=== PATIENT | female | born 1985 ===

== ENCOUNTER 2018-06-06 19:29 | Emergency (ER) | payer SELFPAY ==
[~2018-06-06] VITALS: Ht 152.4 cm; Wt 59.0 kg
[~2018-06-06 19:29] MED LIST: ACHD5005 PO; AMLO5TAB7 PO; DOCU100C37 PO; FERR-84 PO; IBUP-1773 PO; LEVO50TA PO; LEVOTHYROXINE; PRED20TA PO; PREN-54 PO; TRAM50TA2 PO
--- NOTE | 2018-06-06 20:00 | ED GU-Female ---
General Stated Complaint: BLOATING;CRAMPING Source: patient, family, spouse Exam Limitations: language barrier (esl language line used) History of Present Illness Date Seen by Provider: Jun 06, 2018 Time Seen by Provider: 19:45 Initial Comments The patient presents to ER by private conveyance with chief complaint the past couple months she's been having a black spot on the left breast is painful and sometimes has a small amount of discharge. She also has a irregular.. She says she's only had a period twice since she had her last child who is 2 years old by . She said the last. Has lasted 4 weeks and is just about complete. She says she also sometimes has a discharge from the vagina. She says is painful urination and she has discomfort in her suprapubic region. She said last month she went to [facility] they worked her up and told her that it was a ovarian cyst rupture. She said they did not do a vaginal exam clicks swabs and check for STD or a breast exam. She does not know the last time she had a Pap smear and has never had a mammogram. Other than denies any other abdominal surgeries. Allergies and Home Medications Allergies Coded Allergies: LUZ ELENAANo Known Allergies (Unverified Allergy, Mild, 07/04/09) Home Medications Amlodipine Besylate 5 Mg Tablet, 5 MG PO DAILY Prescribed by: PIERRE LUCIANO on 02/19/16944 Docusate Sodium 100 Mg Capsule, 100 MG PO BID Prescribed by: PIERRE LUCIANO on 02/19/16944 Ferrous Sulfate 325 Mg Tablet, 325 MG PO DAILY, (Reported) Hydrocodone Bit/Acetaminophen 1 Each Tablet, 1-2 TAB PO Q4H PRN for PAIN Prescribed by: PIERRE LUCIANO on 02/19/16 09 Ibuprofen 600 Mg Tablet, 600 MG PO Q6H Prescribed by: PIERRE LUCIANO on 02/19/1645 Levothyroxine Sodium 50 Mcg Tablet, 50 MCG PO DAILY, (Reported) Pnv No.118/Iron Fumarate/FA 1 Each Tab.chew, 1 EACH PO DAILY, (Reported) Patient Home Medication List Home Medication List Reviewed: Yes Review of Systems Review of Systems Constitutional: No chills, No fever, No malaise EENTM: No ear pain, No eye pain Respiratory: No cough, No short of breath Cardiovascular: No chest pain, No edema Gastrointestinal: No abdominal pain, No constipation, No diarrhea, No nausea, No vomiting Genitourinary: denies burning, denies dysuria Musculoskeletal: No back pain, No joint pain Past Kknelsp-Yokhpy-Ssrxpz Hx Patient Social History Alcohol Use: Denies Use Recreational Drug Use: No Smoking Status: Never a Smoker Recent Foreign Travel: No Contact w/Someone Who Travel: No Immunizations Up To Date Tetanus Booster (TDap): Unknown PED Vaccines UTD: Yes Past Medical History Reproductive Disorders: No Female Reproductive Disorders: Denies Sexually Transmitted Disease: No HIV/AIDS: No Hypothyroidsim Family Medical History Alcoholism MATERNAL GRANDFATHER Asthma G8 SISTER Diabetes mellitus 19 FATHER (NIDDM) 19 MOTHER (NIDDM) Kidney disease 19 FATHER (KIDNEY FAILURE) Diabetes Physical Exam Vital Signs Capillary Refill : Height, Weight, BMI Height: 5'0.00" Weight: 188lbs. 0.0oz. [id number]; 36.7 BMI Method:Estimated General Appearance: WD/WN, no apparent distress HEENT: PERRL/EOMI, normal ENT inspection, pharynx normal Neck: non-tender, normal inspection Cardiovascular: normal peripheral pulses, regular rate, rhythm, no edema Respiratory: lungs clear, normal breath sounds, no respiratory distress, no accessory muscle use Gastrointestinal: normal bowel sounds, non tender, soft Genital/Rectal: normal genital exam, normal vaginal exam; No tenderness; other (normal size of the ovaries and uterus on palpation. There is a thin brown secretions visualized on examination.) Pelvic: normal external exam, normal adnexa, no cerv. motion tender, no masses Neurologic/Psychiatric: alert, normal mood/affect, oriented x 3 Skin: other (there is a 1-2 mm diameter round, regular, uniform colored macula at the 9:00 position on the left breast. The breast tissue itself is unremarkable to palpation. There are no masses. The nipple does not express any discharge. No axillary lymphadenopathy palpable. No other skin changes, dimpling or deformity.) Progress/Results/Core Measures Suspected Sepsis SIRS Temperature: Pulse: Respiratory Rate: Laboratory Tests 06/06/18 19:50: White Blood Count 9.3 Blood Pressure / Mean: Laboratory Tests 06/06/18 19:50: Creatinine 0.79, Platelet Count 273, Total Bilirubin 0.3 Results/Orders Lab Results Laboratory Tests Test 06/06/18 19:50 06/06/18 19:55 06/06/18 21:35 Range/Units White Blood Count 9.3 4.3-11.0 10^3/uL Red Blood Count 4.56 4.35-5.85 10^6/uL Hemoglobin 14.7 11.5-16.0 G/DL Hematocrit 43 35-52 % Mean Corpuscular Volume 94 80-99 FL Mean Corpuscular Hemoglobin 32 25-34 PG Mean Corpuscular Hemoglobin Concent 34 32-36 G/DL Red Cell Distribution Width 12.2 10.0-14.5 % Platelet Count 273 130-400 10^3/uL Mean Platelet Volume 10.8 H 7.4-10.4 FL Neutrophils (%) (Auto) 55 42-75 % Lymphocytes (%) (Auto) 37 12-44 % Monocytes (%) (Auto) 8 0-12 % Eosinophils (%) (Auto) 1 0-10 % Basophils (%) (Auto) 0 0-10 % Neutrophils # (Auto) 5.1 1.8-7.8 X 10^3 Lymphocytes # (Auto) 3.4 1.0-4.0 X 10^3 Monocytes # (Auto) 0.7 0.0-1.0 X 10^3 Eosinophils # (Auto) 0.1 0.0-0.3 10^3/uL Basophils # (Auto) 0.0 0.0-0.1 10^3/uL Urine Color YELLOW Urine Clarity CLEAR Urine pH 8 5-9 Urine Specific [place] 1.015 L 1.016-1.022 Urine Protein 3+ H NEGATIVE Urine Glucose (UA) NEGATIVE NEGATIVE Urine Ketones NEGATIVE NEGATIVE Urine Nitrite NEGATIVE NEGATIVE Urine Bilirubin NEGATIVE NEGATIVE Urine Urobilinogen NORMAL NORMAL MG/DL Urine Leukocyte Esterase 1+ H NEGATIVE Urine RBC (Auto) 2+ H NEGATIVE Urine RBC 2-5 H /HPF Urine WBC 0-2 /HPF Urine Squamous Epithelial Cells 2-5 /HPF Urine Crystals NONE /LPF Urine Bacteria NONE /HPF Urine Casts NONE /LPF Urine Mucus NEGATIVE /LPF Urine Culture Indicated NO Sodium Level 140 135-145 MMOL/L Potassium Level 4.1 3.6-5.0 MMOL/L Chloride Level 103 98-107 MMOL/L Carbon Dioxide Level 26 21-32 MMOL/L Anion Gap 11 5-14 MMOL/L Blood Urea Nitrogen 11 7-18 MG/DL Creatinine 0.79 0.60-1.30 MG/DL Estimat Glomerular Filtration Rate > 60 BUN/Creatinine Ratio 14 Glucose Level 126 H 70-105 MG/DL Calcium Level 9.5 8.5-10.1 MG/DL Corrected Calcium 9.4 8.5-10.1 MG/DL Total Bilirubin 0.3 0.1-1.0 MG/DL Aspartate Amino Transf (AST/SGOT) 112 H 5-34 U/L Alanine Aminotransferase (ALT/SGPT) 247 H 0-55 U/L Alkaline Phosphatase 100 40-136 U/L Total Protein 7.8 6.4-8.2 GM/DL Albumin 4.1 3.2-4.5 GM/DL Thyroid Stimulating Hormone (TSH) 3.24 0.35-4.94 UIU/ML Urine Test NEGATIVE NEGATIVE My Orders Orders - AWILDA RUBIN Cbc With Automated Diff (06/06/18 19:50) Comprehensive Metabolic Panel (06/06/18 19:50) Thyroid Stimulating Hormone (06/06/18 19:50) Ua Culture If Indicated (06/06/18 19:50) Saline Lock/Iv-Start (06/06/18 19:50) Neisseria Gonorrhea Swab (06/06/18 19:50) Chlamydia Trachomatis Swab (06/06/18 19:50) Wet Prep (06/06/18 19:50) Hcg,Qualitative Urine (06/06/18 20:50) Vital Signs/I&O Capillary Refill : Progress Note #1: Time: 19:59 Progress Note We'll get the patient produce a urine specimen put an IV and get some labs and put her in a gown. Plan to do a pelvic exam as well as breast exam and obtain wet prep, GC chlamydia. After we obtain samples will probably be referring her to gynecology for follow-up. Last imaging we have for her was in 2016 images during a breech position fetus which would explain why she had the . Progress Note #2: Time: 22:02 Departure Impression Primary Impression: Abnormal uterine bleeding Additional Impressions: Breast tenderness in female Normal mole of skin Disposition: 01 HOME, SELF-CARE Condition: Stable Departure-Patient Inst. Decision time for Depature: 22:05 Referrals: JANET CANTU DO (PCP/Family) Primary Care Physician Patient Instructions: Absent or Irregular Periods Add. Discharge Instructions: Follow-up with your primary care doctor to get a referral to an DISTRIBUTION OPERATIONS MANAGER or you can follow-up with Dr. Cantu. Use Tylenol 1000 mg and/or ibuprofen 800 mg every 8 hours as needed for the discomfort. Copy Copies To 1: JANET CANTU TITUS J Jun 06, 2018 20:00
[2018-06-06 20:03] LABS: BASOPHILS % (AUTO) 0 % (0-10); EOSINOPHILS # (AUTO) 0.1 10^3/uL (0.0-0.3); EOSINOPHILS % (AUTO) 1 % (0-10); HEMATOCRIT 43 % (35-52); HEMOGLOBIN 14.7 G/DL (11.5-16.0); LYMPHOCYTES # (AUTO) 3.4 X 10^3 (1.0-4.0); LYMPHOCYTES % (AUTO) 37 % (12-44); MEAN CORPUSCULAR HEMOGLOBIN 32 PG (25-34); MEAN CORPUSCULAR HGB CONC 34 G/DL (32-36); MEAN CORPUSCULAR VOLUME 94 FL (80-99); MEAN PLATELET VOLUME 10.8 FL (7.4-10.4); MONOCYTES # (AUTO) 0.7 X 10^3 (0.0-1.0); MONOCYTES % (AUTO) 8 % (0-12); NEUTROPHILS # (AUTO) 5.1 X 10^3 (1.8-7.8); NEUTROPHILS % (AUTO) 55 % (42-75); PLATELET COUNT 273 10^3/uL (130-400); RED BLOOD COUNT 4.56 10^6/uL (4.35-5.85); RED CELL DISTRIBUTION WIDTH 12.2 % (10.0-14.5); WHITE BLOOD COUNT 9.3 10^3/uL (4.3-11.0)
[2018-06-06 20:04] LABS: BILIRUBIN,URINE NEGATIVE (NEGATIVE); CLARITY,URINE CLEAR; COLOR,URINE YELLOW; GLUCOSE, URINE (UA) NEGATIVE (NEGATIVE); KETONES,URINE NEGATIVE (NEGATIVE); LEUKOCYTE ESTERASE ,URINE 1+ (NEGATIVE); NITRITE,URINE NEGATIVE (NEGATIVE); PH,URINE 8 (5-9); PROTEIN,URINE 3+ (NEGATIVE); UROBILINOGEN,URINE NORMAL (NORMAL)
[2018-06-06 20:10] LABS: WBC,URINE 0-2 /HPF
[2018-06-06 20:20] LABS: ALANINE AMINOTRANSFERASE 247 U/L (0-55); ALBUMIN 4.1 GM/DL (3.2-4.5); ALKALINE PHOSPHATASE 100 U/L (40-136); BILIRUBIN,TOTAL 0.3 MG/DL (0.1-1.0); BUN/CREATININE RATIO 14; CALCIUM 9.5 MG/DL (8.5-10.1); CARBON DIOXIDE 26 MMOL/L (21-32); CHLORIDE 103 MMOL/L (98-107); CREATININE SERUM 0.79 MG/DL (0.60-1.30); GFR ESTIMATED > 60; GLUCOSE 126 MG/DL (70-105); POTASSIUM 4.1 MMOL/L (3.6-5.0); SODIUM 140 MMOL/L (135-145); TOTAL PROTEIN 7.8 GM/DL (6.4-8.2)
[2018-06-06 22:26] VITALS: BP 116/72
== END 2018-06-06 22:30 | disposition home or self-care (01) ==
LOC: EDUNIT# 19:29 → ER 19:31
DX: N93.9 Abnormal uterine and vaginal bleeding, unspecified (principal); N64.59 Other signs and symptoms in breast; D22.9 Melanocytic nevi, unspecified; E03.9 Hypothyroidism, unspecified; Z98.890 Other specified postprocedural states
CPT/HCPCS: 36415; 80053; 81000; 84443; 84703; 85025; 87210; 87491; 87591

== ENCOUNTER 2018-12-02 19:38 | Emergency (ER) | payer SELFPAY ==
[~2018-12-02] VITALS: Ht 154.9 cm; Wt 77.1 kg
[~2018-12-02 19:38] MED LIST changes: -AMLO5TAB7 PO; +AMLO5TAB9 PO
[2018-12-02 20:30] LABS: BILIRUBIN,URINE NEGATIVE (NEGATIVE); CLARITY,URINE VERY CLOUDY; COLOR,URINE AMBER; GLUCOSE, URINE (UA) NEGATIVE (NEGATIVE); KETONES,URINE NEGATIVE (NEGATIVE); LEUKOCYTE ESTERASE ,URINE 2+ (NEGATIVE); NITRITE,URINE NEGATIVE (NEGATIVE); PH,URINE 6 (5-9); PROTEIN,URINE 3+ (NEGATIVE); UROBILINOGEN,URINE 1 MG/DL (NORMAL)
[2018-12-02] MEDS ORDERED: CYCLOBENZAPRINE 10 MG (FLEXERIL) TAB PO ONE (20:30)
[2018-12-02] MEDS ORDERED: KETOROLAC 30 MG/ML VIAL IM ONE (20:30)
[2018-12-02 20:44] LABS: AMORPHOUS SEDIMENT,UR RARE AMOR URATES /LPF; BACTERIA,URINE FEW /HPF; RBC,URINE RARE /HPF
[2018-12-02] MEDS ORDERED: CEPHALEXIN 250 MG (KEFLEX) CAP PO ONE (21:30)
--- NOTE | 2018-12-02 21:32 | ED Back Pain ---
General Chief Complaint: Back Problems Stated Complaint: BACK PAIN Nursing Triage Note: pt arrived pov with with c/o back pain that started today. pain radiates up and down. no known injury Nursing Sepsis Screen: No Definite Risk Source of Information: Patient, [employer] Exam Limitations: Language Barrier History of Present Illness Date Seen by Provider: Dec 02, 2018 Time Seen by Provider: 19:55 Initial Comments This 33 year old woman presents to the ER with complaints of lower back pain that started this morning. Pain was of gradual onset and intensified throughout the day. She took Ibuprofen 400 mg but this did not help much. She has experienced some stinging with urination. She has some mild right sided radicular symptoms with right leg numbness x 2 weeks. She denies any bowel or bladder dysfunction. She reports one prior episode about 6 years ago. She is uncertain of when her last period was because she has irregular cycles. She plans to follow-up with Dr. Kirk for this. Allergies and Home Medications Allergies Coded Allergies: George Known Allergies (Unverified Allergy, Mild, 07/04/09) Home Medications Amlodipine Besylate 5 Mg Tablet, 5 MG PO DAILY Prescribed by: PIERRE LUCIANO on 02/19/16944 Cephalexin 500 Mg Capsule, 500 MG PO TID Prescribed by: EFRA ERWIN on 12/02/182134 Cyclobenzaprine HCl 10 Mg Tablet, 10 MG PO Q8H PRN for SPASMS Prescribed by: EFRA ERWIN on 12/02/182134 Docusate Sodium 100 Mg Capsule, 100 MG PO BID Prescribed by: PIERRE LUCIANO on 02/19/16944 Ferrous Sulfate 325 Mg Tablet, 325 MG PO DAILY, (Reported) Hydrocodone Bit/Acetaminophen 1 Each Tablet, 1-2 TAB PO Q4H PRN for PAIN Prescribed by: PIERRE LUCIANO on 02/19/16944 Ibuprofen 600 Mg Tablet, 600 MG PO Q6H Prescribed by: PIERRE LUCIANO on 02/19/16944 Levothyroxine Sodium 50 Mcg Tablet, 50 MCG PO DAILY, (Reported) Pnv No.118/Iron Fumarate/FA 1 Each Tab.chew, 1 EACH PO DAILY, (Reported) Prednisone 20 Mg Tab, 20 MG PO DAILY Prescribed by: EFRA ERWIN on 12/02/182134 Patient Home Medication List Home Medication List Reviewed: Yes Review of Systems Constitutional: no symptoms reported EENTM: no symptoms reported Respiratory: no symptoms reported Cardiovascular: no symptoms reported Gastrointestinal: no symptoms reported Genitourinary: see HPI Musculoskeletal: see HPI Skin: no symptoms reported Psychiatric/Neurological: No Symptoms Reported Past Bhjdtpz-Ekinux-Bpanly Hx Past Med/Social Hx: Reviewed and Corrections made Patient Social History Alcohol Use: Denies Use Recreational Drug Use: No 2nd Hand Smoke Exposure: No Recent Foreign Travel: No Contact w/Someone Who Travel: No Recent Infectious Disease Expo: No Recent Hopitalizations: No Immunizations Up To Date Tetanus Booster (TDap): Unknown PED Vaccines UTD: Yes Seasonal Allergies Seasonal Allergies: No Past Medical History Surgeries: Yes Section Respiratory: No Cardiac: No Neurological: No Reproductive Disorders: No Female Reproductive Disorders: Denies, Ovarian Cyst Sexually Transmitted Disease: No HIV/AIDS: No Genitourinary: No Gastrointestinal: No Musculoskeletal: No Endocrine: Yes Hypothyroidsim HEENT: No Cancer: No Psychosocial: No Integumentary: No Blood Disorders: No Family Medical History Alcoholism MATERNAL GRANDFATHER Asthma G8 SISTER Diabetes mellitus 19 FATHER (NIDDM) 19 MOTHER (NIDDM) Kidney disease 19 FATHER (KIDNEY FAILURE) Diabetes Physical Exam Vital Signs Vital Signs - First Documented 12/02/18 19:45 Temp 98.2 Pulse 18 Resp 20 B/P (MAP) 152/99 (116) Pulse Ox 100 O2 Delivery Room Air Capillary Refill : Less Than 3 Seconds Height, Weight, BMI Height: 5'1.00" Weight: 170lbs. 0.0oz. 77.937377xe; 36.7 BMI Method:Stated General Appearance: No Apparent Distress, WD/WN HEENT: PERRL/EOMI, Normal ENT Inspection Neck: Normal Inspection Cardiovascular: Regular Rate, Rhythm, No Edema, No Murmur Respiratory: Lungs Clear, Normal Breath Sounds, No Accessory Muscle Use, No Respiratory Distress Gastrointestinal: Non Tender, Soft Back: Normal Inspection, No Vertebral Tenderness Extremity: Normal Capillary Refill, Normal Inspection, Non Tender Neurologic/Psychiatric: Alert, Oriented x3, No Motor/Sensory Deficits, Normal Mood/Affect, event av operator II-XII Norm as Tested Progress/Results/Core Measures Results/Orders Lab Results Laboratory Tests Test 12/02/18 20:24 Range/Units Urine Color REBECCA H Urine Clarity VERY CLOUDY H Urine pH 6 5-9 Urine Specific [place] 1.015 L 1.016-1.022 Urine Protein 3+ H NEGATIVE Urine Glucose (UA) NEGATIVE NEGATIVE Urine Ketones NEGATIVE NEGATIVE Urine Nitrite NEGATIVE NEGATIVE Urine Bilirubin NEGATIVE NEGATIVE Urine Urobilinogen 1 NORMAL MG/DL Urine Leukocyte Esterase 2+ H NEGATIVE Urine RBC (Auto) 5+ H NEGATIVE Urine RBC RARE /HPF Urine WBC 10-25 H /HPF Urine Squamous Epithelial Cells 10-25 H /HPF Urine Crystals NONE /LPF Urine Amorphous Sediment RARE ADALID URATES H /LPF Urine Bacteria FEW H /HPF Urine Casts NONE /LPF Urine Mucus NEGATIVE /LPF Urine Culture Indicated YES Micro Results Microbiology 12/02/18 Urine Culture - Final, Complete See Report My Orders Orders - EFRA ROWE MD Ketorolac Injection (Toradol Injection) (12/02/18 20:30) Cyclobenzaprine Tablet (Flexeril Tablet) (12/02/18 20:30) Ua Culture If Indicated (12/02/18 20:17) Urine Bedside (12/02/18 20:17) Urine Culture (12/02/18 20:24) Cephalexin Capsule (Keflex Capsule) (12/02/18 21:30) Im/Sub-Q Injection Non-Ab Ed (12/02/18 ) Medications Given in ED Vital Signs/I&O 12/02/18 12/02/18 19:45 21:51 Temp 98.2 98.2 Pulse 18 75 Resp 20 20 B/P (MAP) 152/99 (116) 148/90 (109) Pulse Ox 100 100 O2 Delivery Room Air Blood Pressure Mean: 116 Progress Progress Note : Time: 21:39 Progress Note Patient was interviewed with the language line swahili teacher. Patient was given a Toradol injection and cyclobenzaprine. She did have some improvement in her pain. She was found to have suggestion of urinary tract infection on her urinalysis. Keflex was given prior to discharge. She was given prescriptions for Keflex, prednisone, and cyclobenzaprine. She was encouraged to follow up with Dr. KIRK as previously directed for the irregular vaginal bleeding. She plans to call his office this week. Departure Impression Primary Impression: Urinary tract infection Qualified Codes: N39.0 - Urinary tract infection, site not specified Additional Impression: Lower back pain Qualified Codes: M54.41 - Lumbago with sciatica, right side Disposition: 01 HOME, SELF-CARE Condition: Improved Departure-Patient Inst. Decision time for Depature: 21:27 Referrals: NO,LOCAL PHYSICIAN (PCP/Family) Primary Care Physician Patient Instructions: Low Back Pain (DC), Urinary Tract Infection, Adult (DC) Add. Discharge Instructions: Drink plenty of clear liquids. For pain you may take ibuprofen up to 600 mg every 6 hours as needed. You may also take Tylenol (acetaminophen) up to 1000 mg every 6 hours as needed. For muscle strain or spasms you may take cyclobenzaprine as prescribed. Take prednisone as prescribed to help with inflammation in your back. Take early in the day to avoid sleep disturbance. Take with food or milk to avoid stomach irritation. Complete your antibiotic as prescribed. Establish care with a primary care provider soon as possible. Return to the emergency room if you have worsening problems, especially if you have weakness in your legs, loss of feeling in your legs, or difficulty controlling your bowels or bladder. All discharge instructions reviewed with patient and/or family. Voiced understanding. Scripts Prednisone (Prednisone) 20 Mg Tab 20 MG PO DAILY, #3 TAB 0 Refills Prov: EFRA ROWE MD 12/02/18 Cyclobenzaprine HCl (Cyclobenzaprine HCl) 10 Mg Tablet 10 MG PO Q8H PRN for SPASMS, #10 TAB 0 Refills Prov: EFRA ROWE MD 12/02/18 Cephalexin (Keflex) 500 Mg Capsule 500 MG PO TID, #20 CAP Prov: EFRA ROWE MD 12/02/18 EFRA ROWE MD Dec 02, 2018 21:32
[2018-12-02] MEDS ORDERED: CEPH-507 PO (21:35)
[2018-12-02] MEDS ORDERED: CYCL10TA9 PO (21:35)
[2018-12-02] MEDS ORDERED: PRD20T PO (21:35)
[2018-12-02 21:51] VITALS: BP 148/90
== END 2018-12-02 21:51 | disposition home or self-care (01) ==
LOC: EDUNIT# 19:38 → ER 19:39
DX: N39.0 Urinary tract infection, site not specified (principal); M54.5 Low back pain; E03.9 Hypothyroidism, unspecified; Z79.52 Long term (current) use of systemic steroids; Z87.448 Personal history of other diseases of urinary system; Z98.890 Other specified postprocedural states
CPT/HCPCS: 81000; 84703; 87088; 96372; 99283

== ENCOUNTER → 2019-01-27 | Outpatient (CLI) | payer OTHER ==
[~2019-01-27] MED LIST changes: +CEPH-507 PO; +CYCL10TA9 PO; +PRD20T PO
--- NOTE | 2019-01-27 14:06 | Diagnostic Imaging Report ---
PROCEDURE: US Renal Bilateral. TECHNIQUE: Multiple real-time grayscale images were obtained over the kidneys in various projections bilaterally. INDICATION: Chronic left flank pain and microscopic hematuria. FINDINGS: Right kidney measures 12.7 x 5.1 x 7.3 cm and the left kidney measures 11.9 x 6.5 x 6.4 cm. Cortical thickening and echogenicity is normal. No calculi are seen. There is no hydronephrosis. Bilateral ureteral jets were visualized in the bladder. IMPRESSION: Unremarkable renal ultrasound. Dictated by: Dictated on workstation # [id number]
--- NOTE | 2019-01-27 14:15 | Diagnostic Imaging Report ---
PROCEDURE: US Non-ob pelvis comp/trans. TECHNIQUE: Multiple realtime grayscale images were obtained of the pelvis in various projections endovaginally. Transabdominal imaging was also performed. INDICATION: Chronic pelvic pain and abnormal uterine bleeding. FINDINGS: Uterus measures 8.2 x 5.7 x 4.3 cm. Cervical nabothian cysts are present. No myometrial mass is seen. Endometrium is 13 mm in thickness. Right ovary measures 5.3 x 3.1 x 2.4 cm and the left ovary measures 3.5 x 3.1 x 2.5 cm. Ovaries contain small follicles. There is blood flow to the ovaries. No adnexal mass or free fluid is seen. IMPRESSION: Unremarkable transabdominal and transvaginal pelvic ultrasound. Dictated by: Dictated on workstation # [id number]
== END ==
LOC: RAD 12:39
PROVIDERS: ATTEND Obstetrics & Gynecology
DX: N83.209 Unspecified ovarian cyst, unspecified side (principal); R31.21 Asymptomatic microscopic hematuria
CPT/HCPCS: 76770; 76830; 76856

== ENCOUNTER 2021-02-09 05:38 | Outpatient (RCR) | payer OTHER ==
[~2021-02-09] VITALS: Ht 154.9 cm; Wt 81.6 kg
[~2021-02-09 05:38] MED LIST changes: +AMLO-250 PO; -AMLO5TAB9 PO; +MEDR10TA PO
== END 2021-02-09 10:16 | disposition home or self-care (01) ==
LOC: PREOP 05:38
PROVIDERS: ATTEND Surgery
DX: Z01.812 Encounter for preprocedural laboratory examination (principal); R10.32 Left lower quadrant pain; Z20.822 Contact with and (suspected) exposure to COVID-19
CPT/HCPCS: 87635

== ENCOUNTER 2021-02-13 09:02 | Day surgery (SDC) | payer OTHER ==
[~2021-02-13] VITALS: Ht 154.9 cm; Wt 81.6 kg
[2021-02-13 09:08] VITALS: BP 152/96
[2021-02-13] MEDS ORDERED: LACTATED RINGERS 1,000 ML IV ONE (09:10)
[2021-02-13] MEDS ORDERED: LACTATED RINGERS 1,000 ML IV STA (09:19)
[2021-02-13] MEDS ORDERED: MIDAZOLAM 2 MG/2 ML (VERSED) VIAL ONE (09:23)
[2021-02-13] MEDS ORDERED: PROPOFOL INJECTION 50 ML IV ONE (09:23)
[2021-02-13] MEDS ORDERED: HURRICAINE EXT TUBE (BENZOCAINE) XX PRN (09:30)
[2021-02-13 09:45] VITALS: BP 129/78
[2021-02-13 09:50] VITALS: BP 126/63
--- NOTE | 2021-02-13 09:50 | Progress Note-Post Operative ---
Post-Operative Progess Note Surgeon (s)/Merchandise Examiner (s) Surgeon OSCAR SHIELDS DO Merchandise Examiner: TRICIA Cee Pre-Operative Diagnosis Nausea, Abd pain, Rectal bleed Post-Operative Diagnosis same plus Gastritis rectal mass poor prep Procedure & Operative Findings Date of Procedure 02/13/21 Procedure Performed/Findings After informed consent was obtained, the patient was brought to the endoscopy suite and placed in the bed in the left lateral decubitus position. She was administered IV sedation by the SCALPING MACHINE OPERATOR, who then monitored her vitals the entire time, heart rate, blood pressure and pulse ox and the scope was inserted, started with the EGD, placed the scope down the mouth through the esophagus and into the stomach and then duodenum. There was some moderate inflammation in the stomach and duodenum looked ok, took a picture of this and then pulled back into the stomach, did a biopsy of the antrum and then one of the gastric body. Pulled the scope into the GE junction, did a biopsy and then suctioned the air out and then pulled the scope up the esophagus and out the mouth. Switched camera, switched gloves, went down below, started the colonoscopy. Unfortunately, pt's colon was very dirty with retained solid fecal material; able to get to the transverse colon. Stopped here and pulled back out past the splenic flexure, into the descending colon, down into the sigmoid and finally into the rectum, retroflexed in the rectal vault, saw some minimal internal hemorrhoids and what looked like anal mass or possibly just fibrotic hemorrhoid; took a picture of this. The patient tolerated the procedure and she was recovered in the endoscopy suite. Anesthesia Type IV sedation by SCALPING MACHINE OPERATOR Estimated Blood Loss Estimated blood loss (mL): scant Specimens/Packing Specimens Removed antral bx body of stomach bx GE jxn bx OSCAR SHIELDS DO Feb 13, 2021 09:50
--- NOTE | 2021-02-13 09:51 | Endoscopy Discharge Instruct ---
Endo Procedure/Findings Findings 1.: Gastritis 2.: Other Findings (poor prep) 3.: Internal Hemorrhoids Discharge Instructions - Activity: You might feel a little sleepy until tomorrow. This is due to the medicine you received to relax you. Until tomorrow, you should: NOT drive a car, operate machinery or power tools. NOT drink any alcoholic beverages. NOT make any important decisions or sign importortant papers. Do not return to work until tomorrow, unless otherwise instructed. Resume previous activities tomorrow. Diet: Start by taking liquids. If you tolerate liquids, advance to solid food. 1.: EGD in 1 year 2.: Colonoscopy in 1 year Notify Physician - If you experience excessive bleeding, unusual abdominal pain, fever, or chest pain, contact your doctor immediately. OSCAR SHIELDS DO Feb 13, 2021 09:51
[2021-02-13 09:55] VITALS: BP 121/70
[2021-02-13 10:07] VITALS: BP 121/70
[2021-02-13 10:55] VITALS: BP 123/75
--- NOTE | 2021-02-13 13:06 | Anesthesia-General Post-Op ---
MAC Patient Condition Mental Status/LOC: Same as Preop Cardiovascular: Satisfactory Nausea/Vomiting: Absent Respiratory: Satisfactory Pain: Controlled Complications: Absent Post Op Complications Complications None Follow Up Care/Instructions Patient Instructions None needed. Anesthesiology Discharge Order Discharge Order Patient is doing well, no complaints, stable vital signs, no apparent adverse anesthesia problems. No complications reported per nursing. VALENTINO VILLEGAS CRNA Feb 13, 2021 13:06
== END 2021-02-13 10:55 | disposition home or self-care (01) ==
LOC: ENDO 09:02
PROVIDERS: ATTEND Surgery
DX: K29.50 Unspecified chronic gastritis without bleeding (principal); B96.81 Helicobacter pylori [H. pylori] as the cause of diseases classified elsewhere; K20.90 Esophagitis, unspecified without bleeding; K62.5 Hemorrhage of anus and rectum; K62.89 Other specified diseases of anus and rectum; E03.9 Hypothyroidism, unspecified; E28.2 Polycystic ovarian syndrome; Z79.890 Hormone replacement therapy; Z79.899 Other long term (current) drug therapy
CPT/HCPCS: 84703

== ENCOUNTER → 2021-03-21 | Outpatient (CLI) | payer SELFPAY | LOC: LAB 15:26 | PROVIDERS: ATTEND Surgery | DX: Z01.89 Encounter for other specified special examinations (principal) | CPT/HCPCS: 36415; 87338 ==

== ENCOUNTER → 2021-03-29 | Outpatient (CLI) | payer OTHER ==
--- NOTE | 2021-03-29 17:42 | Diagnostic Imaging Report ---
INDICATION: Pelvic pain. Pelvic sonography performed with transabdominal and transvaginal views. The uterus measured 9.4 x 4.4 x 6.6 cm and was anteverted. There is no uterine mass. Endometrium measured 9 mm in thickness. The right ovary measured 3.4 x 3.0 x 2.4 cm and appeared normal with normal color flow. The left ovary appeared normal and measured 3.2 x 2.4 x 2.4 cm with normal color flow. There are small follicles in both ovaries which appear physiologic. There was no free fluid. IMPRESSION: Unremarkable pelvic sonography. No change from the previous study of 01/27/2019. Dictated by: Dictated on workstation # [id number]
== END ==
LOC: RAD 15:15
PROVIDERS: ATTEND Obstetrics & Gynecology
DX: R10.2 Pelvic and perineal pain (principal)
CPT/HCPCS: 76830; 76856

== ENCOUNTER → 2023-06-04 | Outpatient (CLI) | payer BC ==
[~2023-06-04] MED LIST changes: +CYCL10TA25 PO; -CYCL10TA9 PO
--- NOTE | 2023-06-04 14:05 | Diagnostic Imaging Report ---
PROCEDURE: Pelvic comp/transvaginal sonogram. TECHNIQUE: Complete transabdominal and transvaginal pelvic ultrasound was performed. In addition, limited pelvic Doppler was performed. INDICATION: Pelvic pain. FINDINGS: The uterus is anteverted measuring 9.7 x 6.1 x 4.7 cm. The endometrium is 10 mm in thickness. No myometrial mass is identified. The right ovary measures 3.3 x 3.0 x 2.6 cm and the left ovary measures 3.5 x 3.0 x 2.2 cm. There is blood flow to both ovaries. No adnexal mass or free pelvic fluid is detected. IMPRESSION: Unremarkable transabdominal and transvaginal pelvic ultrasound with limited pelvic Doppler. Dictated by: Dictated on workstation # [id number]
== END ==
LOC: RAD 10:03
PROVIDERS: ATTEND Obstetrics & Gynecology
DX: R10.9 Unspecified abdominal pain (principal)
CPT/HCPCS: 76830; 76856

== ENCOUNTER → 2023-06-13 | Outpatient (CLI) | payer BC ==
--- NOTE | 2023-06-13 16:04 | Diagnostic Imaging Report ---
PROCEDURE: US Gallbladder. TECHNIQUE: Multiple real-time grayscale images were obtained over the right upper quadrant in various projections. INDICATION: Right upper quadrant abdominal pain Liver parenchyma is homogeneous with normal echotexture. Portal vein is patent with hepatopetal flow. The gallbladder is clear with no stones or wall thickening. The common duct is not dilated. Pancreas appears normal. Aorta and IVC appear normal. Right kidney measures 12.2 cm in length and appears normal. There is no ascites. IMPRESSION: Unremarkable right upper quadrant ultrasound. Dictated by: Dictated on workstation # [id number]
== END ==
LOC: CARD 11:49
PROVIDERS: ATTEND Surgery
DX: R10.11 Right upper quadrant pain (principal); R11.0 Nausea
CPT/HCPCS: 76705

== ENCOUNTER → 2023-06-14 | Outpatient (CLI) | payer BC ==
[~2023-06-14] MED LIST changes: +CATHETER FLUSH 10 ML SYR IVP PRN
--- NOTE | 2023-06-14 17:16 | Diagnostic Imaging Report ---
Indication: Right upper quadrant pain. Examination: Hepatobiliary scan 06/14/2023 Findings: After uneventful administration of 5.09 mCi of technetium 99m Choletec intravenously, subsequent imaging is performed. There is prompt homogeneous uptake throughout the liver. Gallbladder and small bowel seen within 60 minutes. Subsequent administration of Ensure administered orally with continued imaging performed. Ejection fraction is calculated at 29.9%. Impression: 1. No obstructive process. 2. Low ejection fraction suggesting gallbladder dyskinesia or chronic cholecystitis, correlate clinically. Dictated by: Dictated on workstation # [id number]
== END ==
LOC: CARD 09:28
PROVIDERS: ATTEND Surgery
DX: R19.7 Diarrhea, unspecified (principal); R11.0 Nausea
CPT/HCPCS: 78227; A9537